=== PATIENT | female | born 1990 | race Two or more races ===

== ENCOUNTER 2018-05-28 21:53 | Emergency (ER) | payer MEDICAID ==
[~2018-05-28] VITALS: Ht 162.6 cm; Wt 57.6 kg
[2018-05-28] MEDS ORDERED: PROAIR HFA8.5 GM INH (22:03)
[2018-05-28 22:05] VITALS: BP 128/84
--- NOTE | 2018-05-28 22:10 | NUR ---
ED Nurse Note: pt came to ed c/o SOB at work, pt has history of asthma and has an albuterol inhaler. pt has pain on chest due to coughing 7/10
[2018-05-28] MEDS ORDERED: PREDNISONE20 MG ORAL (22:30)
[2018-05-28] MEDS ORDERED: Albuterol ud Inhalation HHN ONE (22:30)
[2018-05-28] MEDS ORDERED: Ipratropium 0.02% Inh Soln 2.5ml UD HHN ONE (22:30)
[2018-05-28] MEDS ORDERED: ZITHROMAX250 MG ORAL (22:30)
--- NOTE | 2018-05-28 22:31 | Emergency Room Report ---
History of Present Illness General Chief Complaint: Upper Respiratory Illness Source: Patient Present Illness HPI Is a 28-year-old female with a history asthma. She presents with chief complaint of shortness of breath. She had a cough and congestion for last week. At work she had shortness of breath. She used inhaler without any leave. No nausea no vomiting. Worse with exertion. Better with rest. Subjective fever. Coughing is productive of sputum. Last steroid use was over a year ago. Last hospital visit for asthma was multiple years ago. Allergies: Coded Allergies: No Known Allergies (Unverified , 05/28/18) Patient History Past Medical History: see triage record, old chart reviewed, asthma Past Surgical History: none Pertinent Family History: none Social History: Denies: smoking Last Menstrual Period: 05/25/2018 Now: No Immunizations: other Reviewed Nursing Documentation: PMH: Agreed; PSxH: Agreed Nursing Documentation-PMH Past Medical History: No History, Except For Hx Asthma: Yes Review of Systems Constitutional: Reports: fever Eye: Denies: eye pain, blurred vision ENT: Reports: nose congestion; Denies: ear pain, throat swelling Respiratory: Reports: cough, shortness of breath, wheezing Cardiovascular: Denies: chest pain, palpitations Gastrointestinal: Denies: abdominal pain, diarrhea, nausea, vomiting Musculoskeletal: Denies: back pain, joint pain Skin: Denies: rash Neurological: Denies: headache, numbness Endocrine: Denies: increased thirst, increased urine Hematologic/Lymphatic: Denies: easy bruising All Other Systems: negative except mentioned in HPI Physical Exam Vital Signs Date Time Temp Pulse Resp B/P (MAP) Pulse Ox O2 Delivery O2 Flow Rate FiO2 05/28/18 21:59 97.7 109 24 128/84 94 Room Air vitals unremarkable Sp02 EP Interpretation: reviewed, normal General Appearance: well appearing, no apparent distress, alert Head: normocephalic, atraumatic Eyes: bilateral eye PERRL, bilateral eye EOMI ENT: hearing grossly normal, normal pharynx Neck: full range of motion, supple, no meningismus Respiratory: chest non-tender, decreased breath sounds, accessory muscle use, wheezing Cardiovascular #1: regular rate, rhythm, no murmur Gastrointestinal: normal bowel sounds, non tender, no mass, no organomegaly, no bruit, non-distended Musculoskeletal: back normal, gait/station normal, normal range of motion Psychiatric: mood/affect normal Skin: warm/dry Medical Decision Making Diagnostic Impression: Primary Impression: Upper respiratory infection Qualified Codes: J06.9 - Acute upper respiratory infection, unspecified Additional Impression: Asthma with exacerbation Qualified Codes: J45.21 - Mild intermittent asthma with (acute) exacerbation ER Course Patient with asthma exacerbation. No evidence of any sepsis, ACS, pneumonia to name a few. Better after breathing treatment. Since her symptoms been ongoing for over a week and she has subjective fever, will cover for possible atypical pneumonia. Last Vital Signs Date Time Temp Pulse Resp B/P (MAP) Pulse Ox O2 Delivery O2 Flow Rate FiO2 05/28/18 22:05 97.7 109 24 128/84 94 Room Air Status: improved Disposition: HOME, SELF-CARE Condition: Stable Scripts Azithromycin* (ZITHROMAX*) 250 Mg Tablet 250 MG ORAL DAILY, #6 TAB 0 Refills Take two tables once daily for 1 day, then one tablet once daily for 4 days. Prov: Stef Gutierrez MD 05/28/18 Prednisone* (PREDNISONE*) 20 Mg Tablet 40 MG ORAL DAILY, #8 TAB Prov: Stef Gutierrez MD 05/28/18 Referrals: [facility],REFERRING (PCP) Patient Instructions: Upper Respiratory Infection, Adult Additional Instructions: Increase fluids. Follow-up with your DrScar in 3-5 days if not better. Return if worse. Stef Gutierrez MD May 28, 2018 22:31
[2018-05-28 23:23] VITALS: BP 128/84
--- NOTE | 2018-05-28 23:23 | NUR ---
ER DISCHARGE NOTE: Patient is cleared to be discharged per ERMD, pt is aox4, on room air, with stable vital signs. pt was given dc and prescription instructions, pt was able to verbalize understanding, pt id band removed. pt is able to ambulate with steady gait. pt took all belongings.
== END 2018-05-28 23:23 | disposition home or self-care (01) ==
LOC: EMR 22:21
DX: J06.9 Acute upper respiratory infection, unspecified (principal); J45.21 Mild intermittent asthma with (acute) exacerbation
CPT/HCPCS: 94640; 94664; 99284; J7512